=== PATIENT | female | born 1985 | race Caucasian/White ===

== ENCOUNTER → 2016-08-28 | Outpatient (CLI) | payer BC ==
[~2016-08-28] MED LIST: ALPR0.5T6 PO; IBUP-1222 PO
== END | disposition home or self-care (01) ==
LOC: CFH 11:32
PROVIDERS: ATTEND Surgery
DX: N63 Unspecified lump in breast (principal)
CPT/HCPCS: 76641; G0204

== ENCOUNTER 2016-09-01 10:55 | Day surgery (SDC) | payer BC ==
[2016-08-29 15:26] LABS: BLOOD UREA NITROGEN 9 mg/dL (7-18)
[~2016-09-01] VITALS: Ht 157.5 cm; Wt 75.0 kg
[~2016-09-01 10:55] MED LIST changes: +BUPIVACAINE/PF-EPI 0.5% 1:200K ONE; +NORE-88 PO
[2016-09-01] MEDS ORDERED: LACTATED RINGERS 1,000 ML IV SCH (12:03)
[2016-09-01 12:04] VITALS: BP 119/79
[2016-09-01 12:10] LABS: HCG UR OBC PASS
[2016-09-01] MEDS ORDERED: SCOPOLAMINE PATCH, 1.5MG PATCH.TD72 TD ONE ×2 (12:55)
[2016-09-01] MEDS ORDERED: FENTANYL PF 100 MCG/2ML ONE ×2 (12:58→14:19)
[2016-09-01] MEDS ORDERED: DEXAMETHASONE 4 MG/ML, 1ML ONE (13:05)
[2016-09-01] MEDS ORDERED: PROPOFOL 10 MG/ML, 20ML ONE (13:05)
[2016-09-01] MEDS ORDERED: ONDANSETRON 2MG/ML, 2ML ONE (13:05)
[2016-09-01] MEDS ORDERED: METOCLOPRAMIDE 5 MG/ML, 2ML ONE (13:05)
[2016-09-01] MEDS ORDERED: CEFAZOLIN 1,000 MG ONE (13:05)
[2016-09-01] MEDS ORDERED: MIDAZOLAM 1 MG/ML, 2ML IV PRN (13:30)
[2016-09-01] MEDS ORDERED: LABETALOL 5MG/ML, 20ML IV PRN (13:30)
[2016-09-01] MEDS ORDERED: hydrALAzine 20 MG/ML, 1ML IV PRN (13:30)
[2016-09-01] MEDS ORDERED: FENTANYL PF 100 MCG/2ML IV PRN (13:30)
[2016-09-01] MEDS ORDERED: MEPERIDINE/PF 25MG/0.5ML IVPush PRN (13:30)
[2016-09-01] MEDS ORDERED: HYDROmorphone 1 MG/ML, 1ML IV PRN (13:30)
[2016-09-01] MEDS ORDERED: ONDANSETRON 2MG/ML, 2ML IVPush PRN (13:30)
[2016-09-01] MEDS ORDERED: OXYcodone 5 MG/5 ML ORAL.SOL UDC PO PRN (13:30)
[2016-09-01] MEDS ORDERED: PROMETHAZINE 25 MG/ML, 1ML IV PRN (13:30)
[2016-09-01] MEDS ORDERED: ACETAMINOPHEN 325 MG TABLET ONE (14:19)
[2016-09-01] MEDS ORDERED: ACETAMINOPHEN 325 MG TABLET PO ONE (14:30)
== END 2016-09-01 15:35 | disposition home or self-care (01) ==
LOC: OUT 10:55
PROVIDERS: ATTEND Surgery
DX: D24.1 Benign neoplasm of right breast (principal); O92.29 Other disorders of breast associated with pregnancy and the puerperium; O99.342 Other mental disorders complicating pregnancy, second trimester; F41.9 Anxiety disorder, unspecified; O99.312 Alcohol use complicating pregnancy, second trimester; Z3A.16 16 weeks gestation of pregnancy; Z82.49 Family history of ischemic heart disease and other diseases of the circulatory system
CPT/HCPCS: 19120; 36415; 80048; 81025; 88305; 88307; J0690; J1100; J2405; J2704; J2765; J3010; J7120

== ENCOUNTER → 2018-07-29 | Outpatient (CLI) | payer OTHER ==
[~2018-07-29] MED LIST changes: -BUPIVACAINE/PF-EPI 0.5% 1:200K ONE
== END | disposition home or self-care (01) ==
LOC: CFH 12:40
PROVIDERS: ATTEND Obstetrics & Gynecology
DX: N64.4 Mastodynia (principal)
CPT/HCPCS: 76641; 77066; G0279